=== PATIENT | female | born 1945 | race Hispanic/Latino ===

== ENCOUNTER → 2023-12-12 | Outpatient (CLI) | payer OTHER ==
[~2023-12-12] MED LIST: ALIS1TAB PO; ASPI-1197 PO; ATOR10TA69 PO; FISH1CAP63 PO; GARL10002 PO; LISI40TA9 PO; METF-444 PO; METO-408 PO; PANT40TA54 PO; PRIM50TA29 PO; [UNRECOGNIZED DRUG - REMARK] PO; b-complex PO; glucosamine PO
[2023-12-12] MEDS: REGADENOSON 0.4 MG/5 ML PF SYG IVP ONE (12:00)
== END | disposition home or self-care (01) ==
LOC: SHCH 12-09 09:06
PROVIDERS: ATTEND Internal Medicine Cardiovascular Disease
DX: I25.10 Atherosclerotic heart disease of native coronary artery without angina pectoris (principal); R06.09 Other forms of dyspnea
CPT/HCPCS: 78452; 93017; J2785; A9500 ×2; 96374

== ENCOUNTER 2024-02-24 07:21 | Observation (INO) | payer OTHER ==
[2024-02-20 14:02] LABS: BASOPHILS # (AUTO) 0.03 K/uL (0.00-0.20); BASOPHILS % (AUTO) 0.5 % (0.0-5.0); EOSINOPHILS # (AUTO) 0.22 K/uL (0.00-0.70); EOSINOPHILS % (AUTO) 3.9 % (0.0-8.0); HEMATOCRIT 33.3 % (36-48); IMMATURE GRANULOCYTE ABSOLUTE 0.01 K/uL (0-1); LYMPHOCYTES % (AUTO) 36.5 % (21.0-51.0); MEAN CORPUSCULAR HEMOGLOBIN 31.3 pg (27.0-33.0); MEAN CORPUSCULAR VOLUME 94.6 fL (79-99); MONOCYTES # (AUTO) 0.4 K/uL (0.1-1.0); MONOCYTES % (AUTO) 7.5 % (3.0-13.0); NEUTROPHILS # (AUTO) 2.9 K/uL (1.8-7.7); NEUTROPHILS % (AUTO) 51.4 % (40.0-77.0); PLATELET COUNT (AUTO) 235 K/uL (130-400); RED BLOOD CELL COUNT(AUTO) 3.52 MIL/uL (4.00-5.50); RED CELL DISTRIBUTION WIDTH 12.5 % (11.0-15.5); WHITE BLOOD COUNT (AUTO) 5.6 K/uL (4.8-10.8)
[2024-02-20 14:09] LABS: CREATININE 1.8 mg/dL (0.5-1.0); POTASSIUM 4.9 mmol/L (3.5-5.1)
[2024-02-20 14:12] VITALS: BP 131/63; PULSE 75; RESP 16
[2024-02-20 14:21] LABS: INR 1.01 (0.85-1.15); PROTHROMBIN TIME 10.9 SEC (9.6-11.6)
[2024-02-20 14:23] LABS: PARTIAL THROMBOPLASTIN TIME 28.2 SEC (26.3-35.5)
[2024-02-20 14:33] LABS: B-TYPE NATRIURETIC PEPTIDE 66 pg/mL (0-100)
[2024-02-20 15:12] LABS: APPEARANCE,URINE CLEAR (CLEAR); BILIRUBIN,URINE NEGATIVE (NEGATIVE); COLOR,URINE LIGHT-YELLOW (YELLOW); GLUCOSE, URINE (UA) NEGATIVE (NEGATIVE); KETONES,URINE NEGATIVE (NEGATIVE); LEUKOCYTE ESTERASE ,URINE 250 Leu/uL (NEGATIVE); NITRATE,URINE 2+ (NEGATIVE); OCCULT BLOOD,URINE NEGATIVE (NEGATIVE); PROTEIN,URINE NEGATIVE (NEGATIVE); UROBILINOGEN,URINE 0.2 mg/dL (0.2-1.0)
[2024-02-20 15:22] LABS: ADD UA MICROSCOPIC YES
[2024-02-20 15:49] LABS: BACTERIA,URINE MOD /HPF (None Seen); MUCUS,URINE RARE LPF (None Seen); SQUAMOUS EPITHELIAL CELL,UR RARE /HPF (0-2); WBC,URINE 26-50 /HPF (0-1)
[2024-02-24] VITALS (18 sets, daily range): BP systolic 126–179; BP diastolic 54–90; PULSE 61–86; RESP 13–20; O2SAT 99–100
[~2024-02-24] VITALS: Ht 167.6 cm; Wt 103.0 kg
[~2024-02-24 07:21] MED LIST changes: +ACET-2743 PO; -ALIS1TAB PO; +AMLO-258 PO; -ASPI-1197 PO; -ATOR10TA69 PO; +CHOL-34 PO; -FISH1CAP63 PO; -GARL10002 PO; +ISOS60TA77 PO; -LISI40TA9 PO; -METF-444 PO; +METO-391 PO; -METO-408 PO; +MIRA50TA PO; +OMEP20CA12 PO; -PANT40TA54 PO; +PRIM50TA23 PO; +SENN-307 PO; +[UNRECOGNIZED DRUG - CODE] PO; -[UNRECOGNIZED DRUG - REMARK] PO; -glucosamine PO
[2024-02-24] MEDS: 0.9%NACL 1000ML 1,000 ML IV ONE (08:34)
[2024-02-24] MEDS ORDERED: AEC81 PO (08:41)
[2024-02-24] MEDS: cefTRIAXone 1G VIAL IVPB ONE ×2 (08:45→09:00)
[2024-02-24] MEDS: 0.9%NACL 1000ML 1,000 ML IV SCH ×2 (10:05→17:44)
[2024-02-24] MEDS ORDERED: HEPARIN 10,000 UNIT/10ML (1,000 UNIT/ML) VIAL ONE (14:09)
[2024-02-24] MEDS ORDERED: BIVALIRUDIN 250 MG/VIAL IV ONE (14:09)
[2024-02-24] MEDS ORDERED: LIDOCAINE HCL 400MG/20ML VIAL ONE (14:09)
[2024-02-24] MEDS ORDERED: NITROGLYCERIN 50MG VIAL ONE (14:10)
[2024-02-24] MEDS ORDERED: IOHEXOL-350 50ML VIAL IV ONE (14:26)
[2024-02-24] MEDS ORDERED: IOHEXOL 350 MG/ML 100ML INFUS..BTL IV ONE ×2 (14:26→15:08)
[2024-02-24] MEDS ORDERED: MIDAZOLAM HCL 1 MG/ML 2ML VIAL ONE (14:35)
[2024-02-24] MEDS ORDERED: FENTANYL CITRATE PF 50 MCG/1 ML 2ML VIAL ONE (14:35)
[2024-02-24] MEDS ORDERED: LABETALOL 20MG SYG IV ONE (14:54)
[2024-02-24] MEDS ORDERED: CLOPIDOGREL 300MG TAB ONE ×2 (14:59→15:00)
[2024-02-24] MEDS ORDERED: ASPIRIN 325MG EC TAB PO ONE (14:59)
[2024-02-24] MEDS ORDERED: hydrALAZine 20MG/ML VIAL ONE (15:23)
[2024-02-24] MEDS ORDERED: DEXTROSE 50%-WATER 50 ML DISP.SYRIN IV PRN (15:30)
[2024-02-24] MEDS ORDERED: SIMETHICONE 125 MG PO PRN (15:30)
[2024-02-24] MEDS ORDERED: acetaMINOPHEN 500 MG TABLET PO PRN (15:30)
[2024-02-24] MEDS: INSULIN HUMULIN R 100 UNIT/ML 3ML SQ SCH (16:30)
[2024-02-24] MEDS ORDERED: TEMAZEPAM 15 MG CAPSULE PO PRN (19:00)
[2024-02-24] MEDS ORDERED: DOCUSATE SODIUM 100 MG CAP PO PRN (19:00)
[2024-02-24] MEDS ORDERED: LACTULOSE 20 GM/30 ML UDCUP PO PRN (19:00)
[2024-02-24] MEDS ORDERED: acetaMINOPHEN 650 MG SUPPOSITORY RC PRN (19:00)
[2024-02-24] MEDS ORDERED: hydrALAZine 20MG/ML VIAL IV PRN (19:00)
[2024-02-24] MEDS: ONDANSETRON 4MG INJ IVP PRN (19:03)
[2024-02-24] MEDS: acetaMINOPHEN 325 MG TAB PO PRN (20:40)
[2024-02-24] MEDS: B COMPLEX PO SCH (21:00)
[2024-02-24] MEDS: PRIMIDONE 50 MG TAB PO SCH ×2 (23:23→23:24)
[2024-02-24] MEDS: PROMETHAZINE HCL 25 MG/ML 1ML AMPULE IM PRN (23:36)
[2024-02-25 00:55] VITALS: BP 121/69
[2024-02-25 04:22] LABS: HEMATOCRIT 33.2 % (36-48); MEAN CORPUSCULAR HEMOGLOBIN 31.3 pg (27.0-33.0); MEAN CORPUSCULAR HGB CONC 33.1 g/dL (32.0-36.0); MEAN CORPUSCULAR VOLUME 94.3 fL (79-99); RED BLOOD CELL COUNT(AUTO) 3.52 MIL/uL (4.00-5.50); RED CELL DISTRIBUTION WIDTH 12.3 % (11.0-15.5); WHITE BLOOD COUNT (AUTO) 6.1 K/uL (4.8-10.8)
[2024-02-25 04:43] LABS: CREATININE 1.3 mg/dL (0.5-1.0); POTASSIUM 4.5 mmol/L (3.5-5.1)
[2024-02-25 04:46] VITALS: BP 143/78; PULSE 72; RESP 20
[2024-02-25 04:56] VITALS: BP 141/72
[2024-02-25 08:09] VITALS: BP 134/69; PULSE 61; RESP 16
[2024-02-25] MEDS ORDERED: CLOP-31 PO (08:35)
[2024-02-25] MEDS: DOCUSATE SODIUM PO SCH (09:00)
[2024-02-25] MEDS: (Mirabegron (Myrbetriq) 50 MG) PO SCH (09:00)
[2024-02-25] MEDS: (Cholecalciferol (Vitamin D3) (Vitamin D3) 25 MCG) PO SCH (09:00)
[2024-02-25] MEDS: SENNOSIDES PO SCH (09:00)
[2024-02-25] MEDS ORDERED: LEVO750T68 PO (09:02)
[2024-02-25 09:50] VITALS: O2SAT 98
[2024-02-25] MEDS: cefTRIAXone 1G VIAL IVPB SCH (09:52)
[2024-02-25] MEDS: amLODIPine 5 MG TAB PO SCH (09:53)
[2024-02-25] MEDS: ASPIRIN 81 MG EC TAB PO SCH (09:53)
[2024-02-25] MEDS: PANTOPRAZOLE 40 MG TAB DR PO SCH (09:53)
[2024-02-25] MEDS: CLOPIDOGREL 75MG TAB PO SCH (09:54)
[2024-02-25] MEDS: METOPROLOL SUCCINATE 50 MG TAB.SR.24H PO SCH (09:54)
[2024-02-25 11:00] VITALS: BP 145/74; PULSE 72; RESP 16
== END 2024-02-25 13:50 | disposition home or self-care (01) ==
LOC: DAH 07:21 → DAHIP 07:22 → DAH 07:22 → 2DH 17:10
PROVIDERS: ADMIT Internal Medicine; ATTEND Internal Medicine
DX: I25.112 Atherosclerotic heart disease of native coronary artery with refractory angina pectoris (principal); I12.9 Hypertensive chronic kidney disease with stage 1 through stage 4 chronic kidney disease, or unspecified chronic kidney disease; E11.22 Type 2 diabetes mellitus with diabetic chronic kidney disease; N18.32 Chronic kidney disease, stage 3b; E78.5 Hyperlipidemia, unspecified; I70.0 Atherosclerosis of aorta; E11.65 Type 2 diabetes mellitus with hyperglycemia; E66.9 Obesity, unspecified; M81.0 Age-related osteoporosis without current pathological fracture; E87.5 Hyperkalemia; N39.0 Urinary tract infection, site not specified; B96.1 Klebsiella pneumoniae [K. pneumoniae] as the cause of diseases classified elsewhere; Z79.899 Other long term (current) drug therapy; Z68.36 Body mass index [BMI] 36.0-36.9, adult; Z90.710 Acquired absence of both cervix and uterus
CPT/HCPCS: 80048 ×2; 83880; 85025; 85610; 85730; 87086 ×2; 87186; 81001; 36415 ×2; 71045; 93005; 93458; 96372; 96365; 96375; 96361; 82948 ×6; 96366; 85027; C1769; C1887; C1894 ×2; C1874; C1760; Q9965; G0378 ×22; J3010; J3490 ×2; J7030; J2550; J0360; J0696 ×2; J2250; J2405; J1644; J0583; Q9967 ×2; A4215; A4223 ×3; A4554; A7002; A4335; A4222; A4221; A4663; A4216; A4606; C9600; 96360; 99156; 99157

== ENCOUNTER → 2024-04-29 | Outpatient (CLI) | payer OTHER ==
[~2024-04-29] MED LIST changes: +AEC81 PO; +CLOP-31 PO; -ISOS60TA77 PO; +LEVO750T68 PO
[2024-04-29 13:22] LABS: ALBUMIN 3.8 g/dL (3.5-5.0); BILIRUBIN,TOTAL 0.2 mg/dL (0.2-1.0); CREATININE 1.7 mg/dL (0.5-1.0); POTASSIUM 4.7 mmol/L (3.5-5.1); TOTAL PROTEIN, SERUM 7.7 g/dL (6.0-8.3)
== END | disposition home or self-care (01) ==
LOC: LAB 11:09
PROVIDERS: ATTEND Internal Medicine Cardiovascular Disease
DX: I10 Essential (primary) hypertension (principal); E78.5 Hyperlipidemia, unspecified
CPT/HCPCS: 36415; 80053; 80061